=== PATIENT | female | born 1980 | race Caucasian/White ===

== ENCOUNTER 2023-10-11 07:31 | Emergency (ER) | payer OTHER ==
[~2023-10-11] VITALS: Ht 152.4 cm; Wt 74.8 kg
[2023-10-11 07:46] VITALS: O2SAT 100
[2023-10-11 08:28] LABS: CHLORIDE 109 mEq/L (98-107); POTASSIUM 3.9 mEq/L (3.5-5.1); SODIUM 138 mEq/L (136-145)
[2023-10-11 08:29] LABS: CARBON DIOXIDE 25 mEq/L (21-32)
[2023-10-11 08:34] LABS: BASOPHILS % 0.5 % (0.0-2.0); CREATININE 0.7 mg/dL (0.6-1.0); DIFFERENTIAL COMMENT 0; EOSINOPHILS % 1.6 % (0.0-5.0); GLUCOSE 100 mg/dL (70-105); HEMATOCRIT. 33.5 % (36.0-48.0); MEAN CORPUSCULAR HGB CONC 32.8 g/dL (31.0-37.0); MEAN CORPUSCULAR VOLUME 73.2 fL (81.0-99.0); MEAN PLATELET VOLUME 8.3 fl (7.4-10.4); MONOCYTES % 6.3 % (2.0-8.0); NEUTROPHILS % 63.6 % (40.0-76.0); PLATELET 318 x1000/uL (130-400); RED BLOOD CELL COUNT 4.58 mill/uL (4.2-5.4); RED CELL DISTRIBUTION WIDTH 20.8 % (11.6-14.6); UREA NITROGEN BLOOD 7 mg/dL (9-23); WHITE BLOOD COUNT 5.8 x1000/uL (4.5-11.0)
[2023-10-11 08:37] LABS: HCG SCREEN NEGATIVE
[2023-10-11 08:59] LABS: CLARITY URINE CLEAR (CLEAR); COLOR URINE YELLOW (YELLOW); GLUCOSE URINE NEGATIVE (NEGATIVE); KETONES URINE NEGATIVE (NEGATIVE); LEUKOCYTE ESTERASE URINE NEGATIVE (NEGATIVE); NITRITE URINE NEGATIVE (NEGATIVE); OCCULT BLOOD URINE TRACE (NEGATIVE); PH URINE 6.5 (4.5-8.0); PROTEIN URINE NEGATIVE (NEGATIVE); SPECIFIC GRAVITY URINE 1.018 (1.005-1.030)
[2023-10-11 09:33] LABS: BACTERIA URINE NONE SEEN; SQUAMOUS EPITHELIAL CELL URINE 1+ /lpf (RARE/1+); WBC URINE 0-2 /hpf (0-2); YEAST URINE NONE SEEN
[2023-10-11] MEDS: METHOCARBAMOL 500MG TABLET PO ONE (11:05)
[2023-10-11] MEDS: IBUPROFEN 600MG TABLET PO ONE (11:05)
[2023-10-11 11:06] LABS: ALANINE AMINOTRANSFERASE 14 IU/L (10-49); ALBUMIN 4.5 g/dL (3.2-4.8); ASPARTATE AMINOTRANSFERASE 20 IU/L (<34); BILIRUBIN DIRECT 0.1 mg/dL (<=3.0); BILIRUBIN TOTAL 0.4 mg/dL (0.1-1.0); PROTEIN TOTAL 7.2 g/dL (6.0-8.3)
[2023-10-11] MEDS ORDERED: IBUP-2029 MT (11:32)
[2023-10-11 11:35] VITALS: BP 110/74; PULSE 81; RESP 17; TEMP 98.1
== END 2023-10-11 12:49 | disposition home or self-care (01) ==
LOC: ER 07:31
DX: R10.2 Pelvic and perineal pain (principal); D64.9 Anemia, unspecified; E78.00 Pure hypercholesterolemia, unspecified; Z98.51 Tubal ligation status
CPT/HCPCS: 36415; 76830; 76856; 80048; 80076; 81003; 81025; 84703; 85025; 99284